=== PATIENT | male | born 1950 | race Caucasian/White ===

== ENCOUNTER 2024-12-11 21:40 | Emergency (ER) | payer MEDICARE, OTHER, SELFPAY ==
[2024-12-11 21:42] VITALS: BP 174/88
[2024-12-11 22:09] LABS: Hematocrit 43.9 % (39.0-52.0); Hemoglobin 14.7 g/dL (13.0-18.0); Mean Corp Hgb Conc. 33.5 g/dL (33.0-37.0); Mean Corpuscular Volume 96.7 fL (80.0-94.0); Nucleated Red Blood Cells % 0 % (-); Platelet Count 205 10^3/uL (130-400); Red Cell Dist. Width 12.2 % (11.5-14.5)
[2024-12-11 22:19] VITALS: BP 157/94
[2024-12-11 22:25] VITALS: BMI 25.8
[2024-12-11 22:26] LABS: Blood Urea Nitrogen 14 mg/dl (9-20); Calcium 9.4 mg/dl (8.4-10.2); Carbon Dioxide 24 mmol/L (22-30); Chloride 105 mmol/L (98-107); Glucose 103 mg/dl (70-99); Sodium 134 mmol/L (135-145); eGFR > 60.00
[2024-12-11 23:00] VITALS: BP 152/84
[2024-12-12] VITALS: BP 149/80
[2024-12-12] MEDS: DUONEB 3 ML INH ×2 (00:03)
--- NOTE | 2024-12-12 00:04 | ED.GENMED ---
History of Present Illness
General
Chief Complaint: Breathing Problem
Source: patient
Exam Limitations: none
Time Seen by Provider: 12/11/24 23:17
Nursing documentation reviewed up to this point in time: agreed with
History of Present Illness
History of Present Illness:
Note:
CHIEF COMPLAINT(S)
Congestion, shortness of breath, cough.
HISTORY OF PRESENT ILLNESS
The patient is a 74-year-old male with a past medical history significant for distant prostate cancer and current treatment for Lyme disease, presenting with congestion, intermittent shortness of breath, and coughing over the past few days. Symptoms
reportedly began on Thursday night, with a noted deterioration around 6 PM on Thursday, described as a sudden increase in respirations and some wheezing. The patient expressed difficulty with breathing, with sounds audible across the room. He noted the
severity of symptoms resembling a severe cold. The patient denied a history of asthma or chronic obstructive pulmonary disease. Prior pulmonary evaluation for similar symptoms had not revealed significant findings.
The patient had previously experienced a similar, though less severe, episode that was managed with a nebulizer years ago. He reports no chest tightness but significant wheezing requiring frequent coughing. He had multiple positive COVID-19 tests at
home. He denies hemoptysis, syncopal episodes, exertional dyspnea, fevers or chills. He denies any chest pain.
PAST MEDICAL AND SURIGICAL HISTORY
- Prostate cancer treated 15-20 years ago.
- Current treatment for Lyme disease with Clarithromycin.
CHRONIC MEDICAL CONDITIONS SIGNIFICANTLY AFFECTING CARE
- Lyme disease.
- Prostate cancer (history).
MEDICATIONS
- Clarithromycin.
Patient takes no medications for blood pressure
Patient takes no medication for hypercholesterol
REVIEW OF SYSTEMS
- Respiratory: Shortness of breath, congestion, wheezing, cough.
- General: No reported fever.
PHYSICAL EXAM
General: Patient is well appearing and in no acute distress; non-toxic
Skin: Warm and dry, no rashes or lesions
Head: Normocephalic, atraumatic
Eyes: Sclera non-icteric. EOMs intact.
Cardiac: Regular rate and rhythm, no murmurs
Peripheral Vascular: No lower extremity swelling or edema
Pulm: Diffuse wheezing heard bilaterally, scattered rhonchi. No respiratory distress. Regular respiratory rate.
Abdomen: No abdominal tenderness to palpation
Neuro: CN II-XII intact, no focal neurologic deficits.
Psychiatric: Appropriate mood and affect.
PROBLEM LIST
- Acute: Respiratory distress likely secondary to COVID-19 infection.
- Chronic: Lyme disease, history of prostate cancer.
PLAN
1. Administer nebulized breathing treatments (Duoneb: Albuterol and Ipratropium) to assess for improvement in wheezing and respiratory distress.
2. Consider oral prednisone to aid in reducing inflammation and opening airways.
3. Discuss potential initiation of Paxlovid treatment, weighing benefits against concerns of the patients currently minimal medication interactions.
4. Monitor response to breathing treatments and reevaluate.
DIFFERENTIAL DIAGNOSIS
The Differential Diagnosis includes, in no particular order and is not limited to:
1. COVID-19 infection.
2. Asthma exacerbation.
3. Chronic obstructive pulmonary disease (unlikely given no history).
4. Upper respiratory tract infection.
5. Pneumonia (ruled out via imaging and labs).
6. Other viral respiratory infection.
7. Congestive heart failure exacerbation.
8. Pulmonary embolism.
9. Bronchitis.
10. Allergic reaction.
CHART REVIEW
No prior ER physician documentation to review no discharge summaries to review
MDM/DISPOSITION
74-year-old male with distant history of prostate cancer presents the ER today with concerns of shortness of breath and cough. This is been going on for the past few days. He has had no fever at home. No history of asthma or COPD. He prior in
the past had a chronic cough and was previously evaluated by a manager steel with yielded a unremarkable workup. On exam he is well-appearing in no acute distress he is in no respiratory distress. His lungs demonstrate some wheezing bilaterally
and some scattered rhonchi. He was treated with 2 DuoNeb treatments with remarkable improvement in his symptoms and lung exam. He did test positive for COVID-19 at home. Suspect because related to COVID infection. He went for x-ray here which
showed no evidence of acute pulmonary edema or pneumonia. His blood work is unremarkable. Will initiate steroids and send from for albuterol inhaler. Patient stable for discharge. Discussed follow-up with primary care provider in 1 week.
Review of Systems
Review of Systems
All Other Systems: ROS reviewed and negative except as documented in HPI and ROS
Phy Exam
Physical Exam
Physical Exam:
see hpi
Scores
Heart Failure Risk
Heart Failure Risk Score: Not Applicable
Course
Orders/Labs/Results
Orders:
Orders
12/11/24 21:49
Chest [CR Chest - 2 Views ] Urgent
Comment:
Reason For Exam: cough
12/11/24 21:59
Basic Metabolic Panel Urgent
Complete Blood Count/With Diff Urgent
12/11/24 23:32
Ipratropium/Albuterol Sulfate [Duoneb] 3 ml INH R NOW ONE
Ipratropium/Albuterol Sulfate [Duoneb] 3 ml INH R NOW ONE
12/12/24 00:26
Prednisone [Deltasone] 50 mg PO NOW STA
Abnormal Lab Results
12/11/24
21:59
RBC 4.54 L 10^6/uL
(4.70-6.10)
MCV 96.7 H fL
(80.0-94.0)
MCH 32.4 H pg
(27.0-31.0)
Absolute Neuts (auto) 7.7 H 10^3/uL
(1.4-6.5)
Absolute Monos (auto) 0.8 H 10^3/uL
(0.1-0.6)
Lymphocytes % 13.0 L %
(20.5-51.1)
Sodium 134 L mmol/L
(135-145)
Glucose 103 H mg/dl
(70-99)
12/11/24 21:59
12/11/24 21:59
Vital Signs
Initial and Last Documented VS:
Initial Vital Signs
Temp Pulse Resp BP Pulse Ox
99.1 F 71 30 174/88 92
12/11/24 21:42 12/11/24 21:42 12/11/24 21:42 12/11/24 21:42 12/11/24 21:42
Last Documented Vital Signs
Temp Pulse Resp BP Pulse Ox
98.3 F 79 26 148/76 96
12/12/24 00:01 12/12/24 01:30 12/12/24 01:30 12/12/24 01:00 12/12/24 01:30
*Pulse Oximetry
SaO2: 97
Oxygen Mode of Delivery: Room air
Patient hypoxic: no
*Critical Care Note
Total Time (30-74mins, 75-104mins- exclusive of procedures): Not Applicable
ED Attending Note
-
Portions of this chart may have been created with voice recognition software.� Occasional wrong word or��sound alike� substitutions may have occurred due to the inherent limitations of voice recognition software.
Discharge Plan
Departure
Patient Disposition: Home (Routine Discharge)
Date of Disposition: 12/12/24
Time of Disposition: 01:27
Patient with high blood pressure during this ER visit?: Yes
Condition: Good
Discharge Problem:
COVID-19, Wheezing
Instructions: COVID-19 in adults (DC), Wheezing in adults, BLOOD PRESSURE
Prescriptions:
New
prednisone 20 mg tablet
40 mg PO DAILY 5 Days Qty: 10 0RF
albuterol sulfate [Ventolin HFA] 90 mcg/actuation HFA aerosol inhaler
2 inh inhalation Q4H PRN (Reason: shortness of breath or wheezing) Qty: 6.7 0RF
Referrals:
Yong Sullivan MD [Family Provider, [facility]]
Activity Restrictions/Additional Instructions:
Please follow up with primary care provider in one week for reassessment.
Please continue to monitor your symptoms.
You can take tylenol as needed for fever.
PLEASE RETURN TO THE ER SHOULD YOU DEVELOP PERSISTENT FEVERS, INABILITY BREATHE, CHEST PAIN, SWELLING IN YOUR LEGS, COUGHING UP OF BLOOD, WEAKNESS IN ONE-SIDED BODY VERSUS OTHER, ANY OTHER SIGNS OR SYMPTOMS RECENTLY.
Interventions
Interventions:
*Risk Screen - Suicide Last Done: 12/11/24 21:42
*General Assessment Last Done: 12/11/24 21:42
*Neglect/Abuse Screening Last Done: 12/11/24 22:25
*ED- Fall Risk Assessment Last Done: 12/11/24 21:42
*ED COVID-19 Vaccine History Last Done: 12/11/24 21:42
*ED Influenza Vaccine History Last Done: 12/11/24 21:42
*Nursing Disposition Last Done: 12/12/24 01:43
ED- Cardiac Assessment Last Done: 12/11/24 22:25
ED- Pulmonary Assessment Last Done: 12/11/24 22:25
Discharge Date and Time
Discharge Date/Time: 12/12/24 01:46
Print Language: [place]
[2024-12-12] MEDS: DELTASONE 50 MG PO (00:35)
[2024-12-12 01:00] VITALS: BP 148/76
== END 2024-12-12 01:46 | disposition home or self-care (01) ==
LOC: EMR 21:40
PROVIDERS: Student in an Organized Health Care Education/Training Program; EMERGENCY PHYSICIAN Student in an Organized Health Care Education/Training Program; FAMILY PHYSICIAN Family Medicine
DX: U07.1 COVID-19 (principal); R03.0 Elevated blood-pressure reading, without diagnosis of hypertension; A69.20 Lyme disease, unspecified; Z85.46 Personal history of malignant neoplasm of prostate
CPT/HCPCS: 99284; 94640; 71046; 80048; 85025